=== PATIENT | female | born 1990 | race Two or more races ===

== ENCOUNTER 2023-06-15 21:44 | Observation (INO) | payer OTHER ==
[~2023-06-15] VITALS: Ht 149.9 cm; Wt 77.6 kg
== END 2023-06-16 02:06 | disposition home or self-care (01) ==
LOC: LDRP 21:44
PROVIDERS: ADMIT Obstetrics & Gynecology; ATTEND Obstetrics & Gynecology
DX: O26.893 Other specified pregnancy related conditions, third trimester (principal); R10.9 Unspecified abdominal pain; Z3A.38 38 weeks gestation of pregnancy; W19.XXXA Unspecified fall, initial encounter; Y93.89 Activity, other specified; Y92.89 Other specified places as the place of occurrence of the external cause; Y99.8 Other external cause status
CPT/HCPCS: 59025; 76815; 81002; 94760; G0378